=== PATIENT | female | born 1930 | race Caucasian/White ===

== ENCOUNTER → 2017-08-01 | Outpatient (CLI) | payer OTHER | END | disposition home or self-care (01) | LOC: ECHO 09:53 | DX: I51.7 Cardiomegaly (principal); I49.5 Sick sinus syndrome | CPT/HCPCS: 93306 ==

== ENCOUNTER 2017-12-02 17:24 | Inpatient (IN) | payer OTHER ==
[2017-12-02] MEDS: IV NORMAL SALINE 500ML BAG 500 ML IV (18:24)
[2017-12-02 19:17] LABS: ADD MAN DIFF? NO
[2017-12-02 19:20] LABS: BASO # 0.1 x10^3/uL (0.0-0.2); BASO % 1 % (0-3); EOS # 0.3 x10^3/uL (0.0-0.7); EOS % 4 % (0-3); HEMATOCRIT 40.3 % (36.0-47.0); HEMOGLOBIN 13.5 g/dL (12.0-15.5); LYMPH % 13 % (24-48); MEAN CORPUSCULAR HEMOGLOBIN 32 pg (25-35); MEAN CORPUSCULAR HGB CONC 33 g/dL (31-37); MEAN CORPUSCULAR VOLUME 95 fL (79-100); MONO # 0.8 x10^3/uL (0.0-1.1); MONO % 9 % (0-9); NEUT # 5.9 x10^3uL (1.8-7.7); NEUT % 73 % (31-73); PLATELET COUNT 191 x10^3/uL (140-400); RED BLOOD COUNT 4.24 x10^6/uL (3.50-5.40); RED CELL DISTRIBUTION WIDTH 13.4 % (11.5-14.5); WHITE BLOOD COUNT 8.1 x10^3/uL (4.0-11.0)
[2017-12-02 19:30] LABS: INR 1.1 (0.8-1.1); PROTHROMBIN TIME PATIENT 13.2 SEC (11.7-14.0)
[2017-12-02 19:31] LABS: PARTIAL THROMBOPLASTIN TIME 29 SEC (24-38)
[2017-12-02 19:33] LABS: ANION GAP 7 (6-14); BLOOD UREA NITROGEN 20 mg/dL (7-20); BUN/CREATININE RATIO 25 (6-20); CALCIUM 8.5 mg/dL (8.5-10.1); CARBON DIOXIDE 27 mmol/L (21-32); CHLORIDE 106 mmol/L (98-107); CREATININE 0.8 mg/dL (0.6-1.0); GFR 67.8; GLUCOSE 100 mg/dL (70-99); POTASSIUM 3.7 mmol/L (3.5-5.1); SODIUM 140 mmol/L (136-145)
[2017-12-02 19:39] LABS: ALBUMIN 3.2 g/dL (3.4-5.0); ALBUMIN/GLOBULIN RATIO 1.1 (1.0-1.7); ALK PHOS 91 U/L (46-116); ALT (SGPT) 36 U/L (14-59); AST (SGOT) 103 U/L (15-37); TOTAL BILIRUBIN 0.5 mg/dL (0.2-1.0); TOTAL PROTEIN 6.2 g/dL (6.4-8.2)
[2017-12-02 19:41] LABS: TROPONINI < 0.017 ng/mL (0.000-0.055)
[2017-12-02 19:46] LABS: NT-PRO BNP 196 pg/mL (0-449)
[2017-12-02 19:46] LABS: CKMB MASS 40.2 ng/mL (0.0-3.6)
[2017-12-02 19:47] LABS: CKMB INDEX 1.1 % (0-4); CREATINE KINASE 3805 U/L (26-192)
[2017-12-02 20:02] LABS: BILIRUBIN,URINE NEGATIVE (NEG); CLARITY,URINE TURBID; COLOR,URINE YELLOW; GLUCOSE,URINE NEGATIVE (NEG); NITRITE,URINE POSITIVE (NEG); PH,URINE 5.5; PROTEIN,URINE NEGATIVE (NEG-TRACE); UROBILINOGEN,URINE 0.2 mg/dL (0.2 mg/dL)
[2017-12-02 20:08] LABS: BACTERIA,URINE MANY /HPF (0-FEW); SQUAMOUS EPITHELIAL CELL,UR MANY /LPF; WBC,URINE 20-40 /HPF (0-4)
[2017-12-02] MEDS: HALOPERIDOL LACTATE 5 MG/ML VIAL. IVP (23:24)
[2017-12-03 00:03] LABS: TROPONINI < 0.017 ng/mL (0.000-0.055)
[2017-12-03 04:12] LABS: ADD MAN DIFF? NO
[2017-12-03 04:20] LABS: BASO # 0.1 x10^3/uL (0.0-0.2); BASO % 1 % (0-3); EOS # 0.2 x10^3/uL (0.0-0.7); EOS % 2 % (0-3); HEMOGLOBIN 12.4 g/dL (12.0-15.5); LYMPH # 1.2 x10^3/uL (1.0-4.8); LYMPH % 13 % (24-48); MEAN CORPUSCULAR HEMOGLOBIN 32 pg (25-35); MEAN CORPUSCULAR HGB CONC 33 g/dL (31-37); MEAN CORPUSCULAR VOLUME 95 fL (79-100); MONO # 0.6 x10^3/uL (0.0-1.1); MONO % 7 % (0-9); NEUT # 7.1 x10^3uL (1.8-7.7); NEUT % 77 % (31-73); PLATELET COUNT 185 x10^3/uL (140-400); RED CELL DISTRIBUTION WIDTH 13.2 % (11.5-14.5); WHITE BLOOD COUNT 9.2 x10^3/uL (4.0-11.0)
[2017-12-03 04:58] LABS: ALBUMIN 2.9 g/dL (3.4-5.0); ALK PHOS 77 U/L (46-116); ALT (SGPT) 33 U/L (14-59); ANION GAP 8 (6-14); AST (SGOT) 79 U/L (15-37); BLOOD UREA NITROGEN 14 mg/dL (7-20); BUN/CREATININE RATIO 20 (6-20); CALCIUM 8.6 mg/dL (8.5-10.1); CARBON DIOXIDE 26 mmol/L (21-32); CHLORIDE 108 mmol/L (98-107); CREATININE 0.7 mg/dL (0.6-1.0); GFR 79.2; GLUCOSE 96 mg/dL (70-99); POTASSIUM 3.8 mmol/L (3.5-5.1); SODIUM 142 mmol/L (136-145); TOTAL BILIRUBIN 0.4 mg/dL (0.2-1.0); TOTAL PROTEIN 5.8 g/dL (6.4-8.2)
[2017-12-03 05:22] LABS: TROPONINI < 0.017 ng/mL (0.000-0.055)
[2017-12-03] MEDS ORDERED: POLYETHYLENE GLYCOL 3350 17 GM PACKET. PO (07:30)
[2017-12-03] MEDS: ASPIRIN ENTERIC COATED 81 MG TABLET.DR. PO ×2 (07:56→09:00)
[2017-12-03] MEDS: METOPROLOL SUCC 24HR ER 25 MG TAB.ER.24H. PO ×2 (07:57→09:00)
[2017-12-03] MEDS: ALPRAZolam 0.25 MG TABLET PO ×3 (07:57→21:24)
[2017-12-03] MEDS: ENOXAPARIN 40 MG/0.4 ML SYRINGE. SQ (07:58)
[2017-12-03] MEDS: IV NORMAL SALINE 1000ML BAG 1,000 ML IV ×2 (11:18→21:25)
[2017-12-03] MEDS: HALOPERIDOL LACTATE 5 MG/ML VIAL. IVP ×2 (15:43→21:52)
[2017-12-03] MEDS: cefTRIAXone IV Push 1 GM VIAL. IVP (21:24)
[2017-12-03] MEDS: QUEtiapine 25 MG TABLET. PO (21:24)
[2017-12-03] MEDS: LACTOBACILLUS RHAMNOSUS GG 1 CAPSULE. PO (21:24)
[2017-12-03] MEDS: DOCUSATE SODIUM 100 MG CAPSULE. PO (21:24)
[2017-12-04] MEDS: HALOPERIDOL LACTATE 5 MG/ML VIAL. IVP ×2 (02:58→14:13)
[2017-12-04 05:19] LABS: MRSA BY PCR Negative (Negative)
[2017-12-04 06:29] LABS: ADD MAN DIFF? NO
[2017-12-04 06:32] LABS: BASO # 0.1 x10^3/uL (0.0-0.2); BASO % 1 % (0-3); EOS # 0.2 x10^3/uL (0.0-0.7); EOS % 2 % (0-3); HEMATOCRIT 41.1 % (36.0-47.0); LYMPH # 1.5 x10^3/uL (1.0-4.8); LYMPH % 15 % (24-48); MEAN CORPUSCULAR HEMOGLOBIN 32 pg (25-35); MEAN CORPUSCULAR HGB CONC 34 g/dL (31-37); MEAN CORPUSCULAR VOLUME 95 fL (79-100); MONO # 1.1 x10^3/uL (0.0-1.1); MONO % 11 % (0-9); NEUT # 7.4 x10^3uL (1.8-7.7); NEUT % 72 % (31-73); PLATELET COUNT 221 x10^3/uL (140-400); RED BLOOD COUNT 4.35 x10^6/uL (3.50-5.40); RED CELL DISTRIBUTION WIDTH 13.2 % (11.5-14.5); WHITE BLOOD COUNT 10.3 x10^3/uL (4.0-11.0)
[2017-12-04 07:30] LABS: ANION GAP 11 (6-14); BLOOD UREA NITROGEN 10 mg/dL (7-20); CALCIUM 9.3 mg/dL (8.5-10.1); CARBON DIOXIDE 24 mmol/L (21-32); CHLORIDE 107 mmol/L (98-107); CREATININE 0.9 mg/dL (0.6-1.0); GFR 59.2; GLUCOSE 98 mg/dL (70-99); POTASSIUM 3.8 mmol/L (3.5-5.1); SODIUM 142 mmol/L (136-145)
[2017-12-04 07:33] LABS: CREATINE KINASE 2124 U/L (26-192)
[2017-12-04] MEDS: LACTOBACILLUS RHAMNOSUS GG 1 CAPSULE. PO ×2 (07:34→20:54)
[2017-12-04] MEDS: ALPRAZolam 0.25 MG TABLET PO ×2 (07:34→20:52)
[2017-12-04] MEDS: ENOXAPARIN 40 MG/0.4 ML SYRINGE. SQ (07:34)
[2017-12-04] MEDS: ASPIRIN ENTERIC COATED 81 MG TABLET.DR. PO (07:35)
[2017-12-04] MEDS: METOPROLOL SUCC 24HR ER 25 MG TAB.ER.24H. PO (07:35)
[2017-12-04] MEDS: IV NORMAL SALINE 1000ML BAG 1,000 ML IV ×2 (09:55→21:28)
[2017-12-04] MEDS ORDERED: HALOPERIDOL LACTATE 5 MG/ML VIAL. IM (18:00)
[2017-12-04] MEDS: QUEtiapine 25 MG TABLET. PO (20:52)
[2017-12-04] MEDS: DOCUSATE SODIUM 100 MG CAPSULE. PO (20:54)
[2017-12-04] MEDS: cefTRIAXone IV Push 1 GM VIAL. IVP (21:06)
[2017-12-05] MEDS: HALOPERIDOL LACTATE 5 MG/ML VIAL. IVP (06:47)
[2017-12-05 07:56] LABS: ANION GAP 8 (6-14); BLOOD UREA NITROGEN 17 mg/dL (7-20); CARBON DIOXIDE 25 mmol/L (21-32); CHLORIDE 110 mmol/L (98-107); CREATINE KINASE 718 U/L (26-192); CREATININE 0.7 mg/dL (0.6-1.0); GFR 79.2; GLUCOSE 87 mg/dL (70-99); POTASSIUM 3.5 mmol/L (3.5-5.1); SODIUM 143 mmol/L (136-145)
[2017-12-05] MEDS: LACTOBACILLUS RHAMNOSUS GG 1 CAPSULE. PO (08:52)
[2017-12-05] MEDS: ALPRAZolam 0.25 MG TABLET PO (08:52)
[2017-12-05] MEDS: ASPIRIN ENTERIC COATED 81 MG TABLET.DR. PO (08:53)
[2017-12-05] MEDS: METOPROLOL SUCC 24HR ER 25 MG TAB.ER.24H. PO (08:53)
[2017-12-05] MEDS: ENOXAPARIN 40 MG/0.4 ML SYRINGE. SQ (08:53)
[2017-12-05] MEDS: IV NORMAL SALINE 1000ML BAG 1,000 ML IV (10:18)
[2017-12-05] MEDS: POTASSIUM CHLORIDE 20 MEQ TABLET.ER. PO (12:37)
== END 2017-12-05 18:18 | disposition home health service (06) | DRG 871 ==
LOC: ER 17:24 → 6 SOUTH 20:34
DX: A41.9 Sepsis, unspecified organism (principal); G93.41 Metabolic encephalopathy; N39.0 Urinary tract infection, site not specified; M62.82 Rhabdomyolysis; I10 Essential (primary) hypertension; F41.9 Anxiety disorder, unspecified; G47.00 Insomnia, unspecified; F03.90 Unspecified dementia, unspecified severity, without behavioral disturbance, psychotic disturbance, mood disturbance, and anxiety; Z95.0 Presence of cardiac pacemaker; Z79.899 Other long term (current) drug therapy
CPT/HCPCS: 36415; 70450; 80048; 80053; 81001; 82550; 82553; 83735; 83880; 84484; 85025; 85610; 85730; 87086; 87641; 92526-GN; 92610-GN; 93005; 96361; 96365; 97162-GP; 97166-GO; 97535-GO; 99285; 99285-25; J0690; J0696; J1630; J1650; J7030; J7040